=== PATIENT | female | born 2000 | race Caucasian/White ===

== ENCOUNTER 2022-06-06 19:12 | Observation (INO) | payer OTHER ==
[~2022-06-06] VITALS: Ht 165.1 cm; Wt 103.0 kg
[2022-06-06] MEDS ORDERED: LR 1,000 ML IV SCH (20:45)
[2022-06-06 21:11] LABS: BASOPHILS # (AUTO) 0.1 K/uL (0.0-0.2); BASOPHILS % (AUTO) 0.8 % (0.0-2.0); EOSINOPHILS # (AUTO) 0.1 K/uL (0.0-0.4); EOSINOPHILS % (AUTO) 1.2 % (0.0-4.0); HEMATOCRIT 34.7 % (36-48); HEMOGLOBIN 11.5 g/dL (12.0-16.0); LYMPHOCYTES % (AUTO) 18.8 % (20.5-51.5); MEAN CORPUSCULAR HEMOGLOBIN 26 pg (27-31); MEAN CORPUSCULAR HGB CONC 33 % (32-36); MEAN CORPUSCULAR VOLUME 79 fL (79.0-98.0); MONOCYTES # (AUTO) 0.6 K/uL (0.0-1.0); MONOCYTES % (AUTO) 5.8 % (1.7-9.3); NEUTROPHILS # (AUTO) 7.8 K/uL (1.8-7.7); NEUTROPHILS % (AUTO) 73.4 % (40.0-70.0); PLATELET COUNT (AUTO) 268 K/uL (130-430); RED BLOOD CELL COUNT(AUTO) 4.39 MIL/uL (4.2-6.2); RED CELL DISTRIBUTION WIDTH 15.7 % (9.0-15.0); WHITE BLOOD COUNT (AUTO) 10.7 K/uL (4.8-10.8)
[2022-06-06 21:13] LABS: CALCIUM 8.3 mg/dL (8.4-11.0); CREATININE 0.55 mg/dL (0.55-1.30); POTASSIUM 3.8 mmol/L (3.5-5.1)
[2022-06-06 21:18] LABS: ALBUMIN 2.4 g/dL (3.4-4.8); TOTAL BILIRUBIN 0.1 mg/dL (0.0-1.0)
== END 2022-06-06 23:05 | disposition home or self-care (01) ==
LOC: SPU 19:12
PROVIDERS: ADMIT Obstetrics & Gynecology; ATTEND Obstetrics & Gynecology
DX: O99.891 Other specified diseases and conditions complicating pregnancy (principal); M54.50 Low back pain, unspecified; Z3A.37 37 weeks gestation of pregnancy
CPT/HCPCS: 96360; 59025; 80053; 81002; 82962; 85025; 36415; 83036; G0378

== ENCOUNTER 2022-06-10 19:45 | Inpatient (IN) | payer OTHER ==
[~2022-06-10] VITALS: Ht 165.1 cm; Wt 103.9 kg
[2022-06-10] MEDS ORDERED: NALBUPHINE HCL 10 MG/ML AMP IM PRN (20:45)
[2022-06-10] MEDS ORDERED: DINOPROSTONE 10 MG SUPP VG ONE (20:45)
[2022-06-10] MEDS ORDERED: NALBUPHINE HCL 10 MG/ML AMP IVP PRN (20:45)
[2022-06-10] MEDS ORDERED: TERBUTALINE SULFATE 1 MG/ML VIAL SUBCUT ONE (20:45)
[2022-06-10] MEDS ORDERED: OXYTOCIN/0.9 % SODIUM CHLORIDE 1,000 ML IV SCH (20:45)
[2022-06-10 21:19] LABS: BASOPHILS % (AUTO) 0.4 % (0.0-2.0); EOSINOPHILS # (AUTO) 0.1 K/uL (0.0-0.4); EOSINOPHILS % (AUTO) 0.5 % (0.0-4.0); HEMATOCRIT 36.4 % (36-48); HEMOGLOBIN 12.1 g/dL (12.0-16.0); LYMPHOCYTES # (AUTO) 2.3 K/uL (1.0-5.5); LYMPHOCYTES % (AUTO) 20.9 % (20.5-51.5); MEAN CORPUSCULAR HEMOGLOBIN 26 pg (27-31); MEAN CORPUSCULAR HGB CONC 33 % (32-36); MEAN CORPUSCULAR VOLUME 79 fL (79.0-98.0); MONOCYTES # (AUTO) 0.5 K/uL (0.0-1.0); MONOCYTES % (AUTO) 5.1 % (1.7-9.3); NEUTROPHILS # (AUTO) 7.9 K/uL (1.8-7.7); NEUTROPHILS % (AUTO) 73.1 % (40.0-70.0); PLATELET COUNT (AUTO) 278 K/uL (130-430); RED BLOOD CELL COUNT(AUTO) 4.62 MIL/uL (4.2-6.2); RED CELL DISTRIBUTION WIDTH 15.6 % (9.0-15.0); WHITE BLOOD COUNT (AUTO) 10.8 K/uL (4.8-10.8)
[2022-06-10 22:04] LABS: POTASSIUM 4.1 mmol/L (3.5-5.1)
[2022-06-10 22:05] LABS: ALBUMIN 2.5 g/dL (3.4-4.8); CALCIUM 8.8 mg/dL (8.4-11.0); CREATININE 0.66 mg/dL (0.55-1.30); TOTAL BILIRUBIN 0.3 mg/dL (0.0-1.0); URIC ACID 5.5 mg/dL (2.4-7.0)
[2022-06-10] MEDS: LR 1,000 ML IV SCH (22:43)
[2022-06-11] MEDS: LR 1,000 ML IV SCH ×2 (02:54→07:05)
[2022-06-11 06:41] VITALS: BP_SYST 131
[2022-06-11] MEDS ORDERED: CEFAZOLIN 2 GM IVPB PREMIX 0 ML IV ONE (14:11)
[2022-06-11] MEDS ORDERED: AMPICILLIN SODIUM 2 GM VIAL ONE (14:12)
[2022-06-11] MEDS ORDERED: fentaNYL CITRATE/PF 100 MCG/2 ML AMP ONE (20:38)
[2022-06-11] MEDS ORDERED: ROPIVACAINE HCL/PF 0.2% 200 ML ONE (20:38)
[2022-06-11] MEDS ORDERED: FENT2mCg/mL-ROPIVA0.2%/NS EPID 200 ML EP SCH (21:00)
[2022-06-11] MEDS ORDERED: LR 500 ML IV ONE (21:00)
[2022-06-12] MEDS ORDERED: NACL 0.9% 1,000 ML IV ONE (06:30)
[2022-06-12] MEDS ORDERED: fentaNYL CITRATE/PF 100 MCG/2 ML AMP ONE (08:03)
[2022-06-12] MEDS ORDERED: ROPIVACAINE HCL/PF 0.2% 200 ML ONE (08:04)
[2022-06-12] MEDS ORDERED: LIDOCAINE PF 1% 30ML(POUR BTL) INJ ONE (09:53)
[2022-06-12] MEDS ORDERED: NALOXONE HCL 0.4 MG/ML AMP (NARCAN) ONE (09:53)
[2022-06-12] MEDS ORDERED: LIGHT MINERAL OIL 10 ML VIAL MC ONE (09:53)
[2022-06-12] MEDS ORDERED: DERMOPLAST SPRAY TP PRN (14:00)
[2022-06-12] MEDS ORDERED: LANOLIN 7 GM OINT. TP PRN (14:00)
[2022-06-12] MEDS ORDERED: OXYTOCIN/0.9 % SODIUM CHLORIDE 1,000 ML IV ONE (14:00)
[2022-06-12] MEDS ORDERED: WITCH HAZEL LEAF 1 MED.PAD MED.PAD TP PRN (14:00)
[2022-06-12] MEDS ORDERED: OXYCODONE/ACETAMINOPHEN 5-325 TABLET PO PRN (14:00)
[2022-06-12] MEDS ORDERED: HYDROcodone/ACETAMIN 5-325 MG TAB (NORCO/ VICODIN) PO PRN (14:00)
[2022-06-12] MEDS: OXYCODONE/ACETAMINOPHEN 5-325 TABLET PO PRN (18:07)
[2022-06-12] MEDS: IBUPROFEN 600 MG TABLET PO SCH ×2 (18:07→23:51)
[2022-06-13] MEDS: IBUPROFEN 600 MG TABLET PO SCH ×2 (05:58→12:08)
[2022-06-13 07:41] LABS: HEMATOCRIT 27.1 % (36-48); HEMOGLOBIN 9.1 g/dL (12.0-16.0)
[2022-06-13] MEDS: OXYCODONE/ACETAMINOPHEN 5-325 TABLET PO PRN (08:45)
[2022-06-13] MEDS ORDERED: DOCUSATE SODIUM 100 MG CAPSULE PO SCH (09:00)
[2022-06-14 20:07] LABS: FTA-Ab (T PALLIDUM) Non Reactive (Non Reactive)
== END 2022-06-13 18:29 | disposition home or self-care (01) | DRG 560 ==
LOC: SPU 19:45
PROVIDERS: ADMIT Obstetrics & Gynecology; ATTEND Obstetrics & Gynecology
PROC: 10E0XZZ Delivery of Products of Conception, External Approach (ICD-10-PCS; principal; 2022-06-12)
PROC: 3E0P7VZ Introduction of Hormone into Female Reproductive, Via Natural or Artificial Opening (ICD-10-PCS; 2022-06-12)
PROC: 3E033VJ Introduction of Other Hormone into Peripheral Vein, Percutaneous Approach (ICD-10-PCS; 2022-06-12)
PROC: 3E0R3BZ Introduction of Anesthetic Agent into Spinal Canal, Percutaneous Approach (ICD-10-PCS; 2022-06-12)
PROC: 00HU33Z Insertion of Infusion Device into Spinal Canal, Percutaneous Approach (ICD-10-PCS; 2022-06-12)
PROC: 0KQM0ZZ Repair Perineum Muscle, Open Approach (ICD-10-PCS; 2022-06-12)
DX: O41.03X0 Oligohydramnios, third trimester, not applicable or unspecified (principal); Z37.0 Single live birth; D62 Acute posthemorrhagic anemia; O99.344 Other mental disorders complicating childbirth; E28.2 Polycystic ovarian syndrome; F41.9 Anxiety disorder, unspecified; O99.284 Endocrine, nutritional and metabolic diseases complicating childbirth; Z20.822 Contact with and (suspected) exposure to COVID-19; Z3A.38 38 weeks gestation of pregnancy; O70.1 Second degree perineal laceration during delivery
CPT/HCPCS: 36415; 80053; 81002; 82947; 82962; 84550; 85018; 85025; 85384; 86592; 86780; 86886; 86900; 86901; 94760; J0290; J0690; J2001; J2300; J2310; J2590; J3010